=== PATIENT | male | born 1955 | race Caucasian/White ===

== ENCOUNTER 2018-12-27 10:52 | Day surgery (SDC) | payer BC ==
[2018-12-25 14:48] VITALS: BMI 29.7
[~2018-12-27 10:52] MED LIST: LACTATED RINGERS 1,000 ML IV SCH
[2018-12-27 11:21] VITALS: TEMP 98.4
[2018-12-27] MEDS ORDERED: LIDOCAINE 1% 20 ML VIAL (10MG/ML) FOR IV START INTRADERMA ONE (11:30)
[2018-12-27] MEDS ORDERED: PROPOFOL 10 MG/ML 20 ML VIAL IV ONE (11:51)
--- NOTE | 2018-12-27 12:01 | P.PCN ---
Date of Procedure: 12/27/18 Procedure(s) Performed: BRIEF HISTORY: Patient is a 63-year-old, pleasant,, scheduled for an upper endoscopy as a part of surveillance of long-standing history of GERD and dysphagia to solids.. PROCEDURE PERFORMED: Esophagogastroduodenoscopy with biopsy . PREOPERATIVE DIAGNOSIS: GERD/intermittent dysphagia to solids.. IV sedation per anesthesia. PROCEDURE: After informed consent was obtained, the patient was brought into the endoscopy unit. IV sedation was administered by Anesthesia under continuous monitoring. Initially the Olympus GIF-140 video endoscope was inserted into the mouth. Esophagus intubated without any difficulty. It was gradually advanced into the stomach and duodenum and carefully examined. The bulb and the second part of the duodenum appeared normal. The scope at this time was withdrawn to the stomach, adequately insufflated with air, and upon careful examination, mucosa of the antrum had mild gastritis and biopsies were done from this area. The, body, cardia and the fundus appeared normal. The scope was then withdrawn into the esophagus. Small sliding febrile hernia noted. The GE junction was located at 41 cm from the incisors. The linear erosions and ulcerations in the distal esophagus consistent with LA grade D reflux esophagitis. There was early distal esophageal stricture noted which did not impede the passage of the scope. The rest of esophagus appeared normal and the patient tolerated the procedure well. IMPRESSION: 1. Linear erosions and ulcerations in the distal esophagus consistent with LA grade B reflux esophagitis. 2. Early distal esophageal stricture 3. Small hiatal hernia 4. Mild antral gastritis. RECOMMENDATIONS: The findings of this examination were discussed with the patient as well as a family. He will follow with the biopsy results. He was advised to start on Prilosec 20 mg twice daily half hour before breakfast and dinnertime for 8 weeks and follow antireflux measures. He will be seen in office in 2 months.
[2018-12-27 12:07] VITALS: PULSE 72
[2018-12-27 12:20] VITALS: BP 135/87; RESP 18
== END 2018-12-27 12:41 | disposition home or self-care (01) ==
LOC: ORWHC2ENDO 10:52
PROVIDERS: ATTEND Internal Medicine Gastroenterology
DX: K22.2 Esophageal obstruction (principal); K44.9 Diaphragmatic hernia without obstruction or gangrene; K22.10 Ulcer of esophagus without bleeding; K21.9 Gastro-esophageal reflux disease without esophagitis; K29.50 Unspecified chronic gastritis without bleeding; I10 Essential (primary) hypertension; E78.5 Hyperlipidemia, unspecified; Z79.899 Other long term (current) drug therapy
CPT/HCPCS: 88305; 43239; J2704

== ENCOUNTER 2020-05-14 09:05 | Day surgery (SDC) | payer BC ==
[2020-05-13 09:04] VITALS: BMI 29.7
[~2020-05-14 09:05] MED LIST changes: +LIDOCAINE 1% (10MG/ML) FOR IV START INTRADERMA PRN
[2020-05-14 09:37] VITALS: RESP 16; TEMP 98.4
[2020-05-14] MEDS ORDERED: PROPOFOL 10 MG/ML 20 ML VIAL IV ONE (10:10)
--- NOTE | 2020-05-14 10:30 | P.PCN ---
Date of Procedure: 05/14/20 Procedure(s) Performed: BRIEF HISTORY: Patient is a 65-year-old pleasant male scheduled for an elective colonoscopy as a part of evaluation of change in bowel habits with alternating diarrhea and constipation for several months duration. PROCEDURE PERFORMED: Colonoscopy with biopsy. PREOPERATIVE DIAGNOSIS: Change in bowel habits. IV sedation per Anesthesia. PROCEDURE: After informed consent was obtained, the patient, was brought into the endoscopy unit. IV sedation was administered by Anesthesia under continuous monitoring. Digital rectal examination was normal. Initially the Olympus CF-160 flexible video colonoscope was then inserted in the rectum, gradually advanced into the cecum without any difficulty. Careful examination was performed as the scope was gradually being withdrawn. Ileocecal valve and the appendiceal orifice were visualized and appeared normal. Prep was excellent. Mucosa of the cecum, ascending colon, transverse colon, descending colon, appeared normal. There were scattered sigmoid diverticulosis noted. There were patchy areas of erythema noted in the sigmoid colon which was biopsied. The rest of the sigmoid colon, and rectum appeared normal. Biopsies were done from ascending and descending colon to rule out microscopic/collagenous colitis. Retroflexion was performed in the rectum and no lesions were seen. The patient tolerated the procedure well. IMPRESSION: Scattered sigmoid diverticulosis. No evidence of colorectal neoplasia RECOMMENDATIONS: Findings of this examination were discussed with the patient as well as his family. He was advised to follow with the biopsy results. He was advised to have a repeat screening colonoscopy in 10 years..
[2020-05-14 10:54] VITALS: BP 134/91; PULSE 66
== END 2020-05-14 11:14 | disposition home or self-care (01) ==
LOC: ORWHC2ENDO 09:05
PROVIDERS: ATTEND Internal Medicine Gastroenterology
DX: K57.30 Diverticulosis of large intestine without perforation or abscess without bleeding (principal); R19.7 Diarrhea, unspecified; I48.91 Unspecified atrial fibrillation; I10 Essential (primary) hypertension; E78.5 Hyperlipidemia, unspecified; K21.9 Gastro-esophageal reflux disease without esophagitis; Z79.899 Other long term (current) drug therapy; Z90.49 Acquired absence of other specified parts of digestive tract
CPT/HCPCS: 45380; J2704; 88305; 88313